=== PATIENT | female | born 1950 | race Caucasian/White ===

== ENCOUNTER → 2017-11-27 | Outpatient (CLI) | payer MEDICARE, OTHER ==
[~2017-11-27] MED LIST: CALC1CHW7 PO; CHOL1CAP34 PO; SACC1CAP3 PO; VITA100018 PO; VITA10004 PO; XYZA5TAB2 PO
[2017-11-27 12:48] LABS: AUTOMATED NEUTROPHIL # 2.4 TH/MM3 (1.8-7.7); BASOPHIL % 0.7 % (0.0-2.0); EOSINOPHIL # 0.2 TH/MM3 (0-0.4); EOSINOPHIL % 2.8 % (0.0-4.0); HEMATOCRIT 36.4 % (35.0-46.0); HEMOGLOBIN 12.3 GM/DL (11.6-15.3); LYMPH % 49.3 % (9.0-44.0); LYMPHOCYTE # 3.1 TH/MM3 (1.0-4.8); MEAN CELL VOLUME 97.1 FL (80.0-100.0); MEAN CORPUSCULAR HEMOGLOBIN 32.7 PG (27.0-34.0); MEAN CORPUSCULAR HGB CONC 33.7 % (32.0-36.0); MEAN PLATELET VOLUME 8.2 FL (7.0-11.0); MONO % 8.3 % (0.0-8.0); MONOCYTE # 0.5 TH/MM3 (0-0.9); NEUT % 38.9 % (16.0-70.0); PLATELET COUNT 259 TH/MM3 (150-450); RED BLOOD COUNT 3.75 MIL/MM3 (4.00-5.30); RED CELL DISTRIBUTION WIDTH 14.3 % (11.6-17.2); WHITE BLOOD COUNT 6.2 TH/MM3 (4.0-11.0)
[2017-11-27 12:54] LABS: BACTERIA, URINE RARE /hpf; BILIRUBIN, URINE NEG (NEG); BLOOD, URINE NEG (NEG); GLUCOSE,URINE NEG (NEG); KETONE, URINE NEG (NEG); NITRITE,URINE NEG (NEG); URINE COLOR LIGHT-YELLOW (YELLW/STRAW); URINE LEUKOCYTE ESTERASE NEG (NEG)
[2017-11-27 13:09] LABS: BICARBONATE 27.3 MEQ/L (21.0-32.0); CALCIUM 8.9 MG/DL (8.5-10.1); CREATININE 0.83 MG/DL (0.50-1.00)
--- NOTE | 2017-11-27 19:53 | EKG ---
Date Performed: 11/27/2017 Time Performed: 10:29:52 PTAGE: 67 years EKG: SINUS BRADYCARDIA SEPTAL MYOCARDIAL INFARCTION, PROBABLY OLD ABNORMAL ECG PREVIOUS TRACING : 06/10/2014 10.55 Since the prior tracing, there has been no significant henenssy DOCTOR: Kami Deutsch Interpretating Date/Time 11/27/2017 19:51:01
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
== END ==
LOC: CPRE 10:01
PROVIDERS: ATTEND Orthopaedic Surgery
DX: Z01.810 Encounter for preprocedural cardiovascular examination (principal); Z01.812 Encounter for preprocedural laboratory examination; M65.312 Trigger thumb, left thumb; R94.31 Abnormal electrocardiogram [ECG] [EKG]
CPT/HCPCS: 36415; 80048; 81001; 85025; 93005

== ENCOUNTER → 2017-12-05 | Day surgery (SDC) | payer MEDICARE, OTHER ==
[~2017-12-05] VITALS: Ht 152.4 cm; Wt 49.5 kg
[~2017-12-05] MED LIST changes: +ACETAMINOPHEN 1000 MG/100 ML 100 ML IV ONE; +ACETAMINOPHEN/HYDROcodone 325 MG/5 MG TAB PO PRN; +APREPITANT 40 MG CAP ONE; -CALC1CHW7 PO; +CHLORHEXIDINE GLUCONATE 2 % 1 PACK (2 CLOTHS) TOPICAL PRN; +DEXAMETHASONE SOD PHOS 4 MG/ML VIAL IV ONE; +DO NOT ADM ANY ANTICOAGULANT DRUGS PRN; +FAMOTIDINE 20 MG/2 ML VIAL ONE; +LACTATED RINGER'S 1000 ML INJ 1,000 ML IV ONE; +LACTATED RINGER'S 1000 ML IV PRN; +LIDOCAINE HCL 1% PF 5 ML SYRINGE OTHER ONE; +METOPROLOL TARTRATE 25 MG TAB PO PRN; +MIDAZOLAM HCL 2 MG/2 ML VIAL ONE; +MORPHINE SULFATE 8 MG/ML INJ IM PRN; +ONDANSETRON HCL 4 MG/2 ML VIAL ONE; +POVIDONE IODINE 5% (ANTISEPSIS KIT) 4 APPLICATIONS EACH NARE PRN; +POVIDONE IODINE 7.5% SCRUB 118 ML BOTTLE TOPICAL SCH; +PROMETHAZINE INJ 25 MG/ML VIAL IM PRN; +PROPOFOL 200 MG/20 ML AMP IV ONE; +SODIUM CHLORID 0.9% 500 ML IV PRN; -XYZA5TAB2 PO; +ceFAZolin 2 GM PREMIX 50 ML IV SCH; +ePHEDrine/NS 25 MG/5 ML SYRINGE IV ONE
[2017-12-05 11:23] VITALS: BP 128/70; PULSE 60; RESP 18; TEMP 97.8; O2SAT 99
--- NOTE | 2017-12-05 13:41 | MP ---
cc: Amanuel Tamayo MD DATE OF OPERATION: 12/05/2017 PREOPERATIVE DIAGNOSIS: Left trigger thumb phenomenon, left hand. POSTOPERATIVE DIAGNOSIS: Left trigger thumb phenomenon, left hand. PROCEDURE: Left trigger thumb release. SURGEON: Amanuel Tamayo MD ANESTHESIA: General by LMA. FORMAT: Following induction of satisfactory general anesthesia by LMA insertion as completed per the Department of Anesthesia, a tourniquet was established around the proximal portion of the left upper extremity. The extremity proper was isolated with a plastic drape and thereafter being prepped with betadine solution and draped into a sterile field in a routine manner. Prior to initiation of the actual procedure, the standard timeout protocol was completed. All parameters were appropriately addressed and confirmed by operating room personnel. The extremity was elevated for approximately 1 minute and the tourniquet inflated to 200 mmHg pressure. A sharp skin incision was initiated in an oblique orientation overlying the volar aspect of the MP joint of the thumb and developed through underlying subcutaneous tissue, hemostasis being maintained by electrocautery. Deepening dissection was facilitated with loop magnification. The flexor tendon sheath and the flexor tendon were identified, and under direct visualization, the sheath was divided midline in a proximal to distal orientation. Passive flexion extension maneuvering of the thumb demonstrated no residual stenotic or triggering phenomenon. The wound was irrigated with saline solution, hemostasis again being maintained by electrocautery. Skin margins were reapproximated with interrupted 4-0 nylon suture. Xeroform gauze and a bulky dry sterile dressing were placed. Tourniquet deflated after 18 minutes of tourniquet time, the extremity being supported in an arm sling. Anesthesia was discontinued, and the patient thus transferred to the recovery room in satisfactory condition, having tolerated her operative procedure well. Estimated blood loss was negligible. Amanuel Tamayo MD NBS/DL , 09:49 AM , 01:39 PM
== END | disposition home or self-care (01) ==
LOC: HSDC 06:18
PROVIDERS: ATTEND Orthopaedic Surgery
DX: M65.312 Trigger thumb, left thumb (principal)
CPT/HCPCS: 01810; 26055; J0131; J0690; J1100; J2250; J2405; J3010; J7120; J8501